=== PATIENT | male | born 1975 | race American Indian/Alaskan Native ===

== ENCOUNTER 2018-09-15 08:41 | Outpatient (CLI) | payer OTHER | END 2018-09-15 08:42 | disposition home or self-care (01) | LOC: LAB 08:41 | DX: E78.2 Mixed hyperlipidemia (principal); D64.9 Anemia, unspecified; E03.9 Hypothyroidism, unspecified; E27.9 Disorder of adrenal gland, unspecified; M05.9 Rheumatoid arthritis with rheumatoid factor, unspecified; E11.9 Type 2 diabetes mellitus without complications; R76.0 Raised antibody titer; E72.11 Homocystinuria ==